=== PATIENT | male | born 1935 | race Caucasian/White ===

== ENCOUNTER 2025-03-05 14:00 | Emergency (ER) | payer MEDICARE, BC, SELFPAY ==
--- NOTE | 2025-03-05 | ECG_ITS ---
Test Reason : ams Blood Pressure : */* mmHG Vent. Rate : 88 BPM Atrial Rate : 88 BPM P-R Int : 172 ms QRS Dur : 112 ms QT Int : 406 ms P-R-T Axes : 67 23 116 degrees QTcB Int : 491 ms Normal sinus rhythm Left bundle branch block Abnormal ECG No previous ECGs available Referred By: Generic ED Physician Electronically Signed By: Joseph Humphrey
--- NOTE | ~2025-03-05 | XR_ITS ---
EXAMINATION: XR CHEST CLINICAL INFORMATION: ams COMPARISON: None available. TECHNIQUE: AP view of the chest was obtained. FINDINGS: The cardiac, hilar, and mediastinal contours are normal. Probable pulmonic valve replacement. There appears to be a retrocardiac oval density, most likely a hiatus hernia. Lungs are bilaterally hyperaerated with mildly increased interstitial markings throughout. No discrete focal pneumonia. No pneumothorax or effusion. No focal osseous or soft tissue abnormality. Mild scoliosis and degenerative changes throughout the spine. There are cholecystectomy clips present. XR/XR chest 1V IMPRESSION: No definite active pulmonary disease. Electronically signed by: Олег Purdy MD 03/05/2025 04:18 PM EST
--- NOTE | ~2025-03-05 | CT_ITS ---
EXAMINATION: CT HEAD WITHOUT CONTRAST CLINICAL INFORMATION: Altered mental status. COMPARISON: None available. TECHNIQUE: Contiguous axial imaging was performed from the skull base to vertex without intravenous administration of contrast. This CT examination was performed using dose optimization techniques as appropriate, variously including the following: *Automated exposure control *Adjustment of mA and/or kV according to patient size (this includes techniques or standardized protocols for targeted exams where dose is matched to indication/reason for exam; i.e. extremities or head) *Use of iterative reconstruction technique FINDINGS: There is no evidence of intracranial hemorrhage or extra-axial fluid collection. There is no mass effect, or edema. No CT evidence of acute territorial infarct. Ventricles, sulci, and cisterns are diffusely somewhat prominent in keeping with age-related cerebral and cerebellar volume loss. There is atrophy of the posterior fossa. No hydrocephalus. No midline shift. Negative hyperdense MCA sign. Negative insular ribbon sign. Patchy periventricular and deep white matter hypoattenuation is consistent with moderate small vessel ischemic changes. There is a prominent old lacunar type infarct in the right thalamus/basal ganglia. Normal pituitary. Atheromatous calcification of the bilateral carotid siphons. Globes and orbital contents image normally. There are bilateral lens replacements. No extracranial soft tissue abnormalities. The paranasal sinuses, mastoid air cells, and tympanic cavities are normally aerated. No suspicious bony abnormalities. There are no acute fractures evident. CT/CT head/brain wo IV con IMPRESSION: 1. No acute intracranial abnormality. 2. Atrophy and chronic small vessel white matter ischemic changes as discussed. Electronically signed by: Олге Purdy MD 03/05/2025 03:58 PM [facility] [place]
[2025-03-05 14:05] VITALS: BP 140/78; PULSE 79; O2SAT 97
[2025-03-05 14:18] VITALS: BP 123/75; PULSE 94; RESP 22; TEMP 36.4; O2SAT 95; BMI 20.8
--- NOTE | 2025-03-05 14:49 | ED.GENADULT ---
[facility] - General Adult General Chief complaint: Weakness Stated complaint: WEAK X1W,FAM ?'S UTI PER EMS Time Seen by Provider: 03/05/25 14:34 Source: patient Mode of arrival: ambulatory Limitations: no limitations History of Present Illness ED Provider: Dr. 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 The patient's daughter is at bedside. Son via phone. History is unable to obtain from patient due to encephalopathy. According to daughter and son patient has been more lethargic and not acting quite like himself for the past couple of days. Daughter noticed that patient's mobility has been steadily declining the past couple of weeks. Therefore patient was brought to the ER for further evaluation. Related Data Allergies Allergy/AdvReac Type Severity Reaction Status Date / Time No Known Allergies Allergy Verified 03/05/25 14:23 Review of Systems Review of Systems: Pertinent review of systems as mentioned in [facility]. All other system otherwise negative. [facility] Past Medical History Attestation statement: The following information was validated with the patient. [facility] Narrative: Medical history as mentioned in [facility] Social History Social History Advance Directives: Yes Advance Directives on File: Yes Advance Directives Date on File: 03/05/25 Physical Exam ED Exam Exam: General: Appears to be asleep in bed, encephalopathic on exam Head: Normacephalic, atraumatic ENT: oral mucosa moist, neck supple, no tracheal deviation Cardiovascular: regular rate, regular rhythm, no murmurs, rubbing, gallops Respiratory: CTAB, no wheeze, rales, rhonchi Gastrointestinal: Soft, non distended, non tender, non guarding Extremities: No limb pain or swelling, no calf tenderness Neurological: Awake and alert, left facial droop, contracture of the left upper extremity, contracted her in the left lower extremity. Consistent with a previous stroke deficit. No new neurological deficit at this time identified on exam Skin: Warm and dry Vital Signs: Vital Signs - 24 hr 03/05/25 14:18 Temperature 97.6 F Pulse Rate 94 Respiratory Rate 22 H Blood Pressure 123/75 Pulse Oximetry 95 Oxygen Delivery Method Room Air BMI result Body Mass Index 20.8 Medications Administered Discontinued Medications Generic Name Dose Route Start Last Admin Trade Name [employer] PRN Reason Stop Dose Admin Lactated Ringer's 1,000 mls @ 999 mls/hr 03/05/25 15:15 03/05/25 16:13 Lr IV 03/05/25 16:15 Infused .Q1H1M ENEDINA Infusion Medical Decision Making Medical Decision Making [facility] Narrative: This is a 89-year-old male history of strokes, hyperlipidemia, mitral valve replacement, bilateral knee replacement presented hospital today for evaluation of increased lethargy and fatigued and encephalopathy. Pursue a broad metabolic workup. Screen patient for sepsis. Including CBC CMP lactic acid blood culture. UA will be obtained. Chest x-ray will be obtained. We will add a TSH and ammonia level as well. CT head dry scan will be obtained. UA will be obtained to rule out UTI. Patient's CBC shows slight anemia at 9.9. Does not meet criteria for transfusion. Patient's chemistries did show creatinine at 1.62 according to the patient's son this is his baseline. Patient's troponin is elevated at 63. Second one is 66. BNP slightly elevated at 353. UA did not show any signs of UTI. CT head was negative. Chest x-ray was negative. I discussed the results with the patient's son was at bedside. Patient's son stated that he does not want any aggressive intervention for his dad at this time. Patient did not complain of any chest pain despite elevated troponin. I do not think this is acute ischemia. Patient clinically does look improved. He is mentating much better on evaluation. Patient is able to walk with the nursing staff with a walker. He is back to his baseline status. Discussed with family. They do feel comfortable taking the patient home. He does have around the clock home health aide at home. Patient will be discharged home. Differential Diagnosis Differential Diagnoses: The differential diagnosis associated with the presentation includes Encephalopathy, hypoglycemia, UTI, pneumonia Lab Data [facility] Lab Attestation statement: I reviewed the patient's lab results. 03/05/25 16:32 03/05/25 14:46 Labs: Lab Results 03/05/25 03/05/25 03/05/25 Range/Units 14:44 14:44 14:46 WBC (4.8-10.8) X10*3/uL RBC (4.60-5.80) X10*6/uL Hgb (14.0-18.0) g/dl Hct (42.0-52.0) % MCV (80.0-98.0) fL MCH (27.0-33.0) pg MCHC (31.0-36.0) g/dl RDW (11.0-16.0) % Plt Count (160-400) X10*3/uL MPV (9.4-12.4) fL Immature Gran % (Auto) (0.0-0.4) % Neut % (Auto) (45-73) % Lymph % (Auto) (20-40) % [place] % (Auto) (2-11) % Eos % (Auto) (0-4) % Baso % (Auto) (0-2) % Lymph # (Auto) (1.2-4.9) X10*3/uL [place] # (Auto) (0.1-1.2) X10*3/uL Eos # (Auto) (0.0-0.4) X10*3/uL Baso # (Auto) (0.0-0.2) X10*3/uL Abs Immat Gran (auto) (0.00-0.03) X10*3/uL Absolute Neuts (auto) (2.0-8.3) x10*3/uL Absolute Nucleated RBC (0.0-0.012) X10*3/uL Nucleated RBC % (auto) (0.0-0.2) /100WBC Hold Purple Top SEE NOTE SEE NOTE Hold Blue Top SEE NOTE VBG pH (7.32-7.43) VBG pCO2 mmHg VBG pO2 mmHg VBG HCO3 (22-26) mmol/L VBG O2 Saturation % VBG Base Excess mmol/L Sodium 141 (135-145) mmol/L Potassium 4.5 (3.3-5.1) mmol/L Chloride 111 H (96-108) mmol/L Carbon Dioxide 23 (22-29) mmol/L Anion Gap 12 (12-20) BUN 25 H (9-16) mg/dL Creatinine 1.62 H (0.5-1.4) mg/dL Estim Creat Clear Calc 33.6 Estimated GFR 40 Random Glucose 86 (60-115) mg/dL Lactic Acid 2.0 (0.5-2.0) mmol/L Calcium 9.5 (8.4-10.2) mg/dL Total Bilirubin 0.3 (0.0-1.0) mg/dL AST 36 (5-37) U/L ALT 26 (0-40) U/L Alkaline Phosphatase 61 (39-117) U/L Ammonia (13-55) umol/L Troponin I High Sens 63.6 H (<3.5-35.0) ng/L NT-Pro-B Natriuret Pep 353.3 H (<300) pg/mL Total Protein 7.2 (6.5-8.0) g/dL Albumin 4.0 (3.5-5.0) g/dL TSH 2.27 (0.32-4.0) uIU/mL Urine Color Urine Appearance Urine pH (5.0-9.0) Ur Specific [place] (1.005-1.025) Urine Protein (Neg-Trace) mg/dL Urine Glucose (UA) (Negative) mg/dL Urine Ketones (Negative) mg/dL Urine Blood (Negative) Urine Nitrite (Negative) Ur Leukocyte Esterase (Negative) Urine RBC (0-2) /HPF Urine WBC (0-5) /HPF Ur Squamous Epith Cells (0-2) /HPF Urine Bacteria (None Seen) Hyaline Casts (0-2) /LPF 03/05/25 03/05/25 03/05/25 Range/Units 14:58 15:29 16:30 WBC (4.8-10.8) X10*3/uL RBC (4.60-5.80) X10*6/uL Hgb (14.0-18.0) g/dl Hct (42.0-52.0) % MCV (80.0-98.0) fL MCH (27.0-33.0) pg MCHC (31.0-36.0) g/dl RDW (11.0-16.0) % Plt Count (160-400) X10*3/uL MPV (9.4-12.4) fL Immature Gran % (Auto) (0.0-0.4) % Neut % (Auto) (45-73) % Lymph % (Auto) (20-40) % [place] % (Auto) (2-11) % Eos % (Auto) (0-4) % Baso % (Auto) (0-2) % Lymph # (Auto) (1.2-4.9) X10*3/uL [place] # (Auto) (0.1-1.2) X10*3/uL Eos # (Auto) (0.0-0.4) X10*3/uL Baso # (Auto) (0.0-0.2) X10*3/uL Abs Immat Gran (auto) (0.00-0.03) X10*3/uL Absolute Neuts (auto) (2.0-8.3) x10*3/uL Absolute Nucleated RBC (0.0-0.012) X10*3/uL Nucleated RBC % (auto) (0.0-0.2) /100WBC Hold Purple Top Hold Blue Top VBG pH 7.40 (7.32-7.43) VBG pCO2 34 mmHg VBG pO2 50 mmHg VBG HCO3 21 L (22-26) mmol/L VBG O2 Saturation 77.0 % VBG Base Excess -2.4 mmol/L Sodium (135-145) mmol/L Potassium (3.3-5.1) mmol/L Chloride (96-108) mmol/L Carbon Dioxide (22-29) mmol/L Anion Gap (12-20) BUN (9-16) mg/dL Creatinine (0.5-1.4) mg/dL Estim Creat Clear Calc Estimated GFR Random Glucose (60-115) mg/dL Lactic Acid (0.5-2.0) mmol/L Calcium (8.4-10.2) mg/dL Total Bilirubin (0.0-1.0) mg/dL AST (5-37) U/L ALT (0-40) U/L Alkaline Phosphatase (39-117) U/L Ammonia 20 (13-55) umol/L Troponin I High Sens (<3.5-35.0) ng/L NT-Pro-B Natriuret Pep (<300) pg/mL Total Protein (6.5-8.0) g/dL Albumin (3.5-5.0) g/dL TSH (0.32-4.0) uIU/mL Urine Color Dark Yellow Urine Appearance Clear Urine pH 5.0 (5.0-9.0) Ur Specific [place] 1.020 (1.005-1.025) Urine Protein 30 (1+) H (Neg-Trace) mg/dL Urine Glucose (UA) Negative (Negative) mg/dL Urine Ketones Trace (Negative) mg/dL Urine Blood Negative (Negative) Urine Nitrite Negative (Negative) Ur Leukocyte Esterase Trace H (Negative) Urine RBC 0-2 (0-2) /HPF Urine WBC 0-5 (0-5) /HPF Ur Squamous Epith Cells 0-2 (0-2) /HPF Urine Bacteria None Seen (None Seen) Hyaline Casts 3-5 (0-2) /LPF 03/05/ Range/Units 16:32 WBC 8.2 (4.8-10.8) X10*3/uL RBC 3.07 L (4.60-5.80) X10*6/uL Hgb 9.9 L (14.0-18.0) g/dl Hct 31.0 L (42.0-52.0) % MCV 101.0 H (80.0-98.0) fL MCH 32.2 (27.0-33.0) pg MCHC 31.9 (31.0-36.0) g/dl RDW 14.6 (11.0-16.0) % Plt Count 252 (160-400) X10*3/uL MPV 10.3 (9.4-12.4) fL Immature Gran % (Auto) 0.2 (0.0-0.4) % Neut % (Auto) 71.6 (45-73) % Lymph % (Auto) 17.5 L (20-40) % [place] % (Auto) 9.1 (2-11) % Eos % (Auto) 1.0 (0-4) % Baso % (Auto) 0.6 (0-2) % Lymph # (Auto) 1.4 (1.2-4.9) X10*3/uL [place] # (Auto) 0.7 (0.1-1.2) X10*3/uL Eos # (Auto) 0.1 (0.0-0.4) X10*3/uL Baso # (Auto) 0.1 (0.0-0.2) X10*3/uL Abs Immat Gran (auto) 0.02 (0.00-0.03) X10*3/uL Absolute Neuts (auto) 5.9 (2.0-8.3) x10*3/uL Absolute Nucleated RBC 0.000 (0.0-0.012) X10*3/uL Nucleated RBC % (auto) 0.0 (0.0-0.2) /100WBC Hold Purple Top Hold Blue Top VBG pH (7.32-7.43) VBG pCO2 mmHg VBG pO2 mmHg VBG HCO3 (22-26) mmol/L VBG O2 Saturation % VBG Base Excess mmol/L Sodium (135-145) mmol/L Potassium (3.3-5.1) mmol/L Chloride (96-108) mmol/L Carbon Dioxide (22-29) mmol/L Anion Gap (12-20) BUN (9-16) mg/dL Creatinine (0.5-1.4) mg/dL Estim Creat Clear Calc Estimated GFR Random Glucose (60-115) mg/dL Lactic Acid (0.5-2.0) mmol/L Calcium (8.4-10.2) mg/dL Total Bilirubin (0.0-1.0) mg/dL AST (5-37) U/L ALT (0-40) U/L Alkaline Phosphatase (39-117) U/L Ammonia (13-55) umol/L Troponin I High Sens 66.6 H (<3.5-35.0) ng/L NT-Pro-B Natriuret Pep (<300) pg/mL Total Protein (6.5-8.0) g/dL Albumin (3.5-5.0) g/dL TSH (0.32-4.0) uIU/mL Urine Color Urine Appearance Urine pH (5.0-9.0) Ur Specific [place] (1.005-1.025) Urine Protein (Neg-Trace) mg/dL Urine Glucose (UA) (Negative) mg/dL Urine Ketones (Negative) mg/dL Urine Blood (Negative) Urine Nitrite (Negative) Ur Leukocyte Esterase (Negative) Urine RBC (0-2) /HPF Urine WBC (0-5) /HPF Ur Squamous Epith Cells (0-2) /HPF Urine Bacteria (None Seen) Hyaline Casts (0-2) /LPF Independent Interpretation I performed an independent interpretation of an: Plain X-Ray and CT Scan Radiology Impression Discussion of test interpretation with radiology: I have reviewed the radiologist's reading. Discharge Plan Discharge Clinical Impression: Dehydration Patient Disposition: Home, Self-Care Instructions: Dehydration (ED) Additional Instructions: You may follow up with your primary care doctor to ensure you are feeling better. Make sure to drink plenty of fluids. Testing did not show any signs of UTI, chest x ray and CTH is did not show any active disease. Print Language: Portuguese
[2025-03-05 15:11] LABS: Appearance Urine Clear; Glucose Urine UA Negative (Negative); PH 5.0 (5.0-9.0); Specific Gravity - Urine 1.020 (1.005-1.025); UMIC TRIGGER UACC YES
[2025-03-05] MEDS: Lactated Ringers 1,000 ML 999 ML IV (15:12)
[2025-03-05 15:26] LABS: Alanine Aminotransferase 26 U/L (0-40); Albumin Level 4.0 g/dL (3.5-5.0); Alkaline Phosphatase 61 U/L (39-117); Anion Gap 12 (12-20); Aspartate Amino Transferase 36 U/L (5-37); Blood Urea Nitrogen 25 mg/dL (9-16); Calcium 9.5 mg/dL (8.4-10.2); Carbon Dioxide 23 mmol/L (22-29); Chloride 111 mmol/L (96-108); Creatinine Clr Calc Pharmacy 33.6; Estimated Glomerular Filt Rate 40; Potassium 4.5 mmol/L (3.3-5.1); Sodium 141 mmol/L (135-145); Total Protein 7.2 g/dL (6.5-8.0)
[2025-03-05 15:27] LABS: Troponin-I High Sensitivity 63.6 ng/L (<3.5-35.0)
[2025-03-05 15:47] LABS: Ammonia 20 umol/L (13-55)
[2025-03-05 16:38] LABS: MANUAL DIFF FLAG NO
[2025-03-05 16:40] LABS: Hematocrit 31.0 % (42.0-52.0); Hemoglobin 9.9 g/dl (14.0-18.0); Imm Gran Abs Auto 0.02 X10*3/uL (0.00-0.03); Imm Gran Pct Auto 0.2 % (0.0-0.4); Lymphocytes Absolute Auto 1.4 X10*3/uL (1.2-4.9); Mean Corpuscular HGB Conc 31.9 g/dl (31.0-36.0); Mean Corpuscular Hemoglobin 32.2 pg (27.0-33.0); Mean Corpuscular Volume 101.0 fL (80.0-98.0); NRBC Abs Auto 0.000 X10*3/uL (0.0-0.012); NRBC Pct Auto 0.0 /100WBC (0.0-0.2); Platelet Count 252 X10*3/uL (160-400); Red Blood Count 3.07 X10*6/uL (4.60-5.80); White Blood Count 8.2 X10*3/uL (4.8-10.8)
[2025-03-05 16:42] LABS: Venous Blood Gas Refer to POC result
[2025-03-05 16:46] LABS: VBG HCO3 21 mmol/L (22-26); VBG O2 % Saturation 77.0 %
[2025-03-05 17:01] LABS: Troponin-I High Sensitivity 66.6 ng/L (<3.5-35.0)
[2025-03-05 17:26] LABS: NT Pro B Type Natriuretic Pept 353.3 pg/mL (<300)
[2025-03-05 18:10] LABS: Thyroid Stimulating Hormone 2.27 uIU/mL (0.32-4.0)
[2025-03-05 18:36] VITALS: BP 123/75; PULSE 94; RESP 22; TEMP 36.4; O2SAT 95
== END 2025-03-05 18:42 | disposition home or self-care (01) ==
PROVIDERS: Emergency Provider Student in an Organized Health Care Education/Training Program; PCP Internal Medicine
DX: E86.0 Dehydration (principal); R53.1 Weakness; R41.82 Altered mental status, unspecified; I44.7 Left bundle-branch block, unspecified; I69.30 Unspecified sequelae of cerebral infarction; E78.5 Hyperlipidemia, unspecified; Z95.2 Presence of prosthetic heart valve; Z87.891 Personal history of nicotine dependence
CPT/HCPCS: 36415; 70450; 71045; 80053; 81001; 82140; 82803; 83605; 83880; 84443; 84484; 85025; 87040; 93005; 96360; 99284; J7120

== ENCOUNTER → 2025-03-05 14:28 | Outpatient (BNV) | payer MEDICARE, BC, SELFPAY | PROVIDERS: Emergency Provider Student in an Organized Health Care Education/Training Program; PCP Internal Medicine; Visit Provider Internal Medicine Cardiovascular Disease | DX: I44.7 Left bundle-branch block, unspecified (principal) | CPT/HCPCS: 93010 ==

== ENCOUNTER → 2025-03-05 15:13 | Outpatient (BNV) | payer MEDICARE, SELFPAY | PROVIDERS: Emergency Provider Student in an Organized Health Care Education/Training Program; Visit Provider Radiology Diagnostic Radiology | DX: G31.9 Degenerative disease of nervous system, unspecified (principal); I67.82 Cerebral ischemia; R90.82 White matter disease, unspecified; R41.82 Altered mental status, unspecified | CPT/HCPCS: 70450; 71045 ==